=== PATIENT | male | born 1970 | race Caucasian/White ===

== ENCOUNTER 2017-05-01 12:26 | Outpatient (CLI) | payer OTHER ==
[~2017-05-01] VITALS: Ht 175.3 cm; Wt 83.9 kg
[~2017-05-01 12:26] MED LIST: LEVO75TA4 PO; LEVO88TA3 PO; RIBO100C PO
[2017-05-01] MEDS ORDERED: NS 1,000 ML IV SCH (14:30)
[2017-05-01] MEDS ORDERED: PROPOFOL 500 MG/50 ML VIAL As Ordered ONE (14:48)
[2017-05-01] MEDS ORDERED: LIDOCAINE 2% INJ 100 MG/5 ML SDV (FOR ANES.) As Ordered ONE (14:48)
--- NOTE | 2017-05-01 15:04 | ROOR ---
Patient Name: Erich Walton Procedure Date: 05/01/2017 2:42 PM Date of : 1970 Age: 46 Room: [facility] [place] Gender: Male Note Status: Finalized Procedure: Upper GI endoscopy Indications: Epigastric abdominal pain, Costochondritis Providers: Fabian GATICA MD Referring MD: LEIGH ANN BELTRÁN MD Requesting Provider: LEIGH ANN BELTRÁN MD Medicines: Monitored Anesthesia Care Complications: No immediate complications. Procedure: Pre-Anesthesia Assessment: - The heart rate, respiratory rate, oxygen saturations, blood pressure, adequacy of pulmonary ventilation, and response to care were monitored throughout the procedure. The Endoscope was introduced through the mouth, and advanced to the second part of duodenum. The upper GI endoscopy was accomplished without difficulty. The patient tolerated the procedure well. Findings: Mildly severe esophagitis was found at the gastroesophageal junction. Biopsies were taken with a cold forceps for histology. Non-severe esophagitis was found in the entire esophagus. This was biopsied with a cold forceps for evaluation of eosinophilic esophagitis. The entire examined stomach was normal. The examined duodenum was normal. Impression: - Mild reflux esophagitis at GE junction. Rule out short segment kingsley's esophagus. Biopsied. - Mild mucosal edema in entire esophagus with longitudinal furrows. Biopsied to r/o eosinophilic esophagitis. - Normal stomach. - Normal examined duodenum. Recommendation: - Use Prilosec (omeprazole) 40 mg twice a day. - (the script was sent to your pharmacy on file) - Telephone endoscopist for pathology results in 2 weeks. Fabian Gatica MD Fabian GATICA MD 05/01/2017 3:04:17 PM This report has been signed electronically. Number of Addenda: 0 Note Initiated On: 05/01/2017 2:42 PM Estimated Blood Loss: Estimated blood loss: none.
[2017-05-01 15:25] VITALS: BP 157/82
== END 2017-05-01 15:40 | disposition home or self-care (01) ==
LOC: M OPP 12:26
PROVIDERS: ATTEND Internal Medicine Gastroenterology
DX: R10.13 Epigastric pain (principal); M94.0 Chondrocostal junction syndrome [Tietze]; K21.0 Gastro-esophageal reflux disease with esophagitis; E03.9 Hypothyroidism, unspecified; G47.30 Sleep apnea, unspecified; E05.00 Thyrotoxicosis with diffuse goiter without thyrotoxic crisis or storm; F17.228 Nicotine dependence, chewing tobacco, with other nicotine-induced disorders; Z79.899 Other long term (current) drug therapy

== ENCOUNTER → 2019-04-08 | Outpatient (CLI) | payer OTHER ==
--- NOTE | 2019-04-08 12:48 | REP ---
MRI right shoulder without contrast: History: Pain in the right shoulder. No comparison radiographs. The patient status post AC decompression, clavicle resection in 2015. Technique: Axial, oblique coronal, and oblique sagittal imaging planes utilized. T1 and T2-weighted scans were included with and without fat saturation. MRI findings: Cortical and medullary bone signal intensity are normal in the proximal humerus and visualized scapula. The distal clavicle is not seen in the field of view consistent with previous history of resection. The glenohumeral articulation is normally aligned. There is a sliver of subacromial subdeltoid bursal fluid. Oblique coronal T1-weighted scans demonstrate swelling and increased signal intensity diffusely in the distal supraspinatus tendon consistent with tendinosis tendonitis change. There is some linear T2 hyperintensity in the central supraspinatus tendon and focally at its distal insertion consistent with partial thickness supraspinatus tear. No complete or retracted tear is seen. The biceps, infraspinatus, and subscapularis tendons appear intact. No anterior or posterior labral tear is appreciated. 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 Partial thickness tear suspected at its distal insertion. The patient is status post distal clavicle resection. Subacromial subdeltoid bursal fluid. Electronically Signed by Ricardo Barr MD 04/08/2019 07:20 P
== END ==
LOC: M RAD 09:52
PROVIDERS: ATTEND Family Medicine
DX: M75.51 Bursitis of right shoulder (principal); M25.511 Pain in right shoulder

== ENCOUNTER 2021-01-20 13:59 | Emergency (ER) | payer OTHER ==
[~2021-01-20] VITALS: Ht 175.3 cm; Wt 86.1 kg
[2021-01-20] MEDS ORDERED: AMLO1TAB24 (14:20)
[2021-01-20 17:36] LABS: BASO % 0.5 % (0.0-1.0); EOS % 0.3 % (0.0-3.0); HEMATOCRIT 43.7 % (42.0-52.0); HEMOGLOBIN 15.2 g/dl (13.5-17.5); LYMPH # 1.4 10^3/uL (1.5-5.0); MEAN CORPUSCULAR HEMOGLOBIN 31.5 pg (27.0-33.0); MEAN CORPUSCULAR HGB CONC 34.8 g/dl (32.0-36.5); MEAN CORPUSCULAR VOLUME 90.7 fl (80.0-96.0); MONO # 0.4 10^3/uL (0.0-0.8); NEUTROPHILS # 4.4 10^3/uL (1.5-8.5); PLATELET COUNT, AUTOMATED 214 10^3/uL (150-450); RED BLOOD COUNT 4.82 10^6/uL (4.30-6.10); WHITE BLOOD COUNT 6.3 10^3/uL (4.0-10.0)
[2021-01-20 18:02] VITALS: BP 141/86
[2021-01-20 18:03] LABS: CPK CREATINE PHOSPHOKINASE 75 U/L (39-308); FREE T4 1.55 NG/DL (0.76-1.46); MB/CK RELATIVE INDEX 1.33 (< OR =4); THYROID STIMULATING HORMONE 0.035 uIU/ML (0.358-3.740); TROPONIN I < 0.02 NG/ML (< 0.10)
--- NOTE | 2021-01-21 09:35 | ECGEPIP ---
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
== END 2021-01-20 18:55 | disposition home or self-care (01) ==
LOC: M ED 13:59
DX: E03.2 Hypothyroidism due to medicaments and other exogenous substances (principal); I10 Essential (primary) hypertension; E78.5 Hyperlipidemia, unspecified; F41.9 Anxiety disorder, unspecified; K21.9 Gastro-esophageal reflux disease without esophagitis; E05.01 Thyrotoxicosis with diffuse goiter with thyrotoxic crisis or storm; F17.220 Nicotine dependence, chewing tobacco, uncomplicated; Z87.820 Personal history of traumatic brain injury; Z79.899 Other long term (current) drug therapy

== ENCOUNTER → 2023-02-14 | Outpatient (REF) | payer OTHER ==
[~2023-02-14] MED LIST changes: +AMLO1TAB24
[2023-02-14 22:10] LABS: APPEARANCE, URINE CLEAR (CLEAR); BACTERIA, URINE AUTO NEGATIVE (NEGATIVE); BILIRUBIN, URINE AUTO NEGATIVE (NEGATIVE); BLOOD, URINE BLOOD 1+ (NEGATIVE); COLOR, URINE YELLOW (YELLOW); GLUCOSE, URINE (UA) AUTO NEGATIVE (NEGATIVE); KETONE, URINE AUTO NEGATIVE (NEGATIVE); LEUKOCYTE ESTERASE, URINE AUTO NEGATIVE (NEGATIVE); MUCUS, URINE SMALL (NEGATIVE); NITRITE, URINE AUTO NEGATIVE (NEGATIVE); PROTEIN, URINE AUTO NEGATIVE (NEGATIVE); RBC, URINE AUTO 15 /HPF (0-3); SPECIFIC GRAVITY URINE AUTO 1.021 (1.002-1.035); SQUAMOUS EPITHELIAL CELL UR AU 0 /HPF (0-6); UROBILINOGEN, URINE AUTO 0.2 mg/dL (0.0-2.0); WBC, URINE AUTO 0 /HPF (0-3)
== END ==
LOC: M LAB REF 21:23
PROVIDERS: ATTEND Physician Assistant Medical
DX: N39.0 Urinary tract infection, site not specified (principal)

== ENCOUNTER → 2023-03-08 | Outpatient (REF) | payer OTHER ==
[2023-03-08 17:58] LABS: APPEARANCE, URINE CLEAR (CLEAR); BACTERIA, URINE AUTO NEGATIVE (NEGATIVE); BILIRUBIN, URINE AUTO NEGATIVE (NEGATIVE); BLOOD, URINE BLOOD NEGATIVE (NEGATIVE); COLOR, URINE YELLOW (YELLOW); GLUCOSE, URINE (UA) AUTO NEGATIVE (NEGATIVE); KETONE, URINE AUTO NEGATIVE (NEGATIVE); LEUKOCYTE ESTERASE, URINE AUTO NEGATIVE (NEGATIVE); NITRITE, URINE AUTO NEGATIVE (NEGATIVE); PROTEIN, URINE AUTO NEGATIVE (NEGATIVE); RBC, URINE AUTO 3 /HPF (0-3); SPECIFIC GRAVITY URINE AUTO 1.012 (1.002-1.035); SQUAMOUS EPITHELIAL CELL UR AU 0 /HPF (0-6); UROBILINOGEN, URINE AUTO 0.2 mg/dL (0.0-2.0); WBC, URINE AUTO 0 /HPF (0-3)
== END ==
LOC: M LAB REF 17:32
PROVIDERS: ATTEND Physician Assistant
DX: N39.0 Urinary tract infection, site not specified (principal)

== ENCOUNTER → 2023-03-08 | Outpatient (CLI) | payer OTHER | LOC: M RAD 15:34 | PROVIDERS: ATTEND Physician Assistant | DX: R10.9 Unspecified abdominal pain (principal) ==

== ENCOUNTER 2023-03-13 01:30 | Emergency (ER) | payer OTHER ==
[~2023-03-13] VITALS: Ht 175.3 cm; Wt 86.4 kg
[2023-03-13] MEDS ORDERED: BACTDSTA (01:39)
[2023-03-13] MEDS ORDERED: NS 1,000 ML IV ONE ×2 (02:00→04:05)
[2023-03-13] MEDS ORDERED: KETOROLAC 30 MG/ML 1ML VIAL IV ONE (02:00)
[2023-03-13] MEDS ORDERED: ONDANSETRON 4MG 2ML VIAL IV ONE (02:00)
[2023-03-13] MEDS ORDERED: MORPHINE 2 MG/ML 1ML VIAL IV PRN (02:05)
[2023-03-13 02:16] LABS: BASO % 0.3 % (0.0-1.0); EOS % 0.3 % (0.0-3.0); HEMATOCRIT 41.4 % (42.0-52.0); HEMOGLOBIN 13.8 g/dl (13.5-17.5); LYMPH # 1.7 10^3/uL (1.5-5.0); LYMPH % 14.1 % (24.0-44.0); MEAN CORPUSCULAR HEMOGLOBIN 30.9 pg (27.0-33.0); MEAN CORPUSCULAR HGB CONC 33.3 g/dl (32.0-36.5); MEAN CORPUSCULAR VOLUME 92.8 fl (80.0-96.0); MONO # 0.7 10^3/uL (0.0-0.8); MONO % 5.7 % (2.0-8.0); NEUTROPHILS # 9.4 10^3/uL (1.5-8.5); NEUTROPHILS % 79.3 % (36.0-66.0); PLATELET COUNT, AUTOMATED 216 10^3/uL (150-450); RED BLOOD COUNT 4.46 10^6/uL (4.30-6.10); WHITE BLOOD COUNT 11.9 10^3/uL (4.0-10.0)
[2023-03-13 02:49] LABS: ALBUMIN 4.5 G/DL (3.2-5.2); BILIRUBIN,DIRECT 0.5 MG/DL (<0.4); BILIRUBIN,TOTAL 1.3 MG/DL (0.3-1.2); RSV AMPLIFICATION NEGATIVE (NEGATIVE); TOTAL PROTEIN 7.4 G/DL (5.7-8.2)
[2023-03-13] MEDS ORDERED: TAMSULOSIN 0.4 MG CAP PO ONE (04:00)
[2023-03-13] MEDS ORDERED: FLOM0.4C39 PO (04:33)
[2023-03-13] MEDS ORDERED: ONDA4TAB6 PO (04:33)
[2023-03-13] MEDS ORDERED: PERC5TAB12 PO (04:33)
[2023-03-13] MEDS ORDERED: OXYCODONE/APAP 5MG/325MG(HOME DOSE PACK) PO ONE (04:40)
[2023-03-13 05:00] VITALS: BP 123/79
== END 2023-03-13 05:14 | disposition home or self-care (01) ==
LOC: M ED 01:30
DX: N20.1 Calculus of ureter (principal); N17.9 Acute kidney failure, unspecified; T37.0X5A Adverse effect of sulfonamides, initial encounter; I10 Essential (primary) hypertension; K21.9 Gastro-esophageal reflux disease without esophagitis; E03.9 Hypothyroidism, unspecified; E78.5 Hyperlipidemia, unspecified
CPT/HCPCS: 74176; 80047; 80076; 81001; 83690; 85025; 87040; 87631; 93041; 96365; 96366; 96375; 99284; J1885; J2405

== ENCOUNTER 2023-07-21 10:33 | Day surgery (SDC) | payer OTHER ==
[~2023-07-21] VITALS: Ht 175.3 cm; Wt 92.5 kg
[~2023-07-21 10:33] MED LIST changes: -AMLO1TAB24; +AMLO1TAB24 PO; +ATOR40TA75 PO; +BACTDSTA; +D3 H10002 PO; +FLOM0.4C39 PO; +LEVO125T4 PO; +LIDOCAINE 2% 100MG/5ML SDV (FOR ANES.) As Ordered ONE; +NS 1,000 ML IV ONE; +OMEG10002 PO; +OMEP10CASR PO; +ONDA4TAB6 PO; +PERC5TAB12 PO; +POTA-150 PO; +VITA500C24 PO; +ZINC100T3 PO; +propofoL 200 MG/20 ML VIAL As Ordered ONE
[2023-07-21] MEDS ORDERED: propofoL 200 MG/20 ML VIAL As Ordered ONE (12:03)
[2023-07-21 12:09] VITALS: TEMP 97.6
[2023-07-21 12:25] VITALS: BP 142/72; O2SAT 96
== END 2023-07-21 12:31 | disposition home or self-care (01) ==
LOC: M OPP 10:33
PROVIDERS: ATTEND Surgery
DX: Z12.11 Encounter for screening for malignant neoplasm of colon (principal); D12.6 Benign neoplasm of colon, unspecified; Z79.02 Long term (current) use of antithrombotics/antiplatelets; Z79.890 Hormone replacement therapy; Z79.899 Other long term (current) drug therapy

== ENCOUNTER → 2023-09-25 | Outpatient (REF) | payer OTHER ==
[~2023-09-25] MED LIST changes: -LIDOCAINE 2% 100MG/5ML SDV (FOR ANES.) As Ordered ONE; -NS 1,000 ML IV ONE; -propofoL 200 MG/20 ML VIAL As Ordered ONE
== END ==
LOC: M LAB REF 21:41
PROVIDERS: ATTEND Physician Assistant
DX: B34.9 Viral infection, unspecified (principal)

== ENCOUNTER → 2023-09-26 | Outpatient (CLI) | payer OTHER | LOC: M RAD 09:50 | PROVIDERS: ATTEND Physician Assistant Medical | DX: R05.9 Cough, unspecified (principal) ==

== ENCOUNTER → 2024-03-26 | Outpatient (CLI) | payer OTHER | LOC: M PLAIMG 09:40 | PROVIDERS: ATTEND Urology | DX: N20.1 Calculus of ureter (principal) ==